=== PATIENT | male | born 1935 | race Caucasian/White ===

== ENCOUNTER 2017-09-28 14:20 | Emergency (ER) | payer MEDICARE, BC ==
--- OUTSIDE RECORDS SUMMARY | 2017-09-28 15:30 | XMS REPORT ---
:1935 External Reference #:[id number] Author Organization [facility] Address [address] [place] [address] Phone [phone] Care Team Providers Name Role Phone Balbir Kruse M.D. 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 Active Onset: 02/06/2015 Primary open-angle glaucoma, moderate Rey Choudhury M.D. Active stage Onset: 01/01/2016 Bilateral primary open angle glaucoma Rey Choudhury M.D. 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 Active Family History Date Family Member(s) Problem(s) Comments Mother Cataract Social History Type Date Description Comments Marital Status Legal Status: Occupation [employer] Developer [employer] Work Status Retired ETOH Use Consumes 1-2 glasses of wine per day Smoking Patient is a former smoker Quit 1970s Recreational Drug Use Denies Drug Use Daily Caffeine Does Not Consume Caffeine Allergies, Adverse Reactions, Alerts Date Description Reaction Status Severity Comments 05/02/2014 NKDA active Medications Medication Date Status Form Strength Qnty SIG Indications Ordering Provider Timolol Maleate 02/06/ Active Solution 0.25% 15ml instill 1 H40.11x2 Rey Long 2014 drop into [place], the right M.D. eye every morning as directed Travatan Z 03/10/ Active Solution 0.004% 15ml instill 1 Catarino 2000 drop into [place], each eye M.D. every night as directed Aspirin / Active Tablets 81mg 1 tab Unknown 0000 every day Vitamin D3 / Active Capsules 1000Unit 1 tab by Unknown 0000 mouth every day Calcium 500 / Active Tablets 500-250-20 1 by mouth Unknown 0000 0mg-mg-Uni every day t Potassium / Active Tablets ER 20Meq Mauser, Chloride Kae 0000 JANE Hilliard MD Eplerenone / Active Tablets 25mg 1/2 daily Mauser, 0000 MD Babak Atorvastatin / Active Tablets 10mg Unknown Calcium 0000 Valsartan / Active Tablets 40mg 1/2 daily Unknown 0000 Vitamin C / Active Capsules 500mg 2 tab by Unknown 0000 mouth every day Doxazosin / Active Tablets 4mg Unknown Mesylate 0000 Vitamin B12 / Active Tablets ER 1000mcg Unknown 0000 Pred Forte 06/26/ Hx Suspension 1% 5ml One drop H40.1131 Rey Long 2017 - three Arleo, 08/22/ times a M.D. 2018 day in the right eye for three days, then discontinu e. Fish Oil 03/10/ Hx Capsules 1000mg 1 by mouth Rey Long 2000 - every day Arleo, 06/25/ M.D. 2017 Multivitamins / Hx Capsules 1 tab by Unknown 0000 - mouth every day 2017 Potassium / Hx Tablets 75mg 1 tab by Unknown 0000 - mouth every day 2017 Vital Signs Date Vital Result Comment 07/14/2017 BP Systolic 142 mmHg BP Diastolic 85 mmHg Heart Rate 76 /min Respiratory Rate 15 /min Results Description No Information Procedures Date CPT Code Description Status 07/14/2017 53273 Trabeculoplasty By Laser Surgery Completed 06/26/2017 17349 Est Patient Comprehensive Exam Completed 12/24/2016 03570 Scanning Computerized Opthalmic Diagnostic Posterior Completed Seg Retina 12/24/2016 29089 Visual Field Exam Extended Completed 12/24/2016 81952 Est Patient Intermediate Exam Completed 07/01/2016 15108 Scanning Computerized Ophthalmic Diagnostic Imag Completed Posterior Seg On 07/01/2016 96718 Est Patient Intermediate Exam Completed 01/01/2016 61249 Visual Field Exam Extended Completed 01/01/2016 45964 Est Patient Comprehensive Exam Completed 06/06/2015 59939 Scanning Computerized Ophthalmic Diagnostic Imag Completed Posterior Seg On 06/06/2015 15405 Gonioscopy Completed 06/06/2015 00869 Est Patient Intermediate Exam Completed 02/23/2015 51951 Visual Field Exam Extended Completed 02/06/2015 87478 Est Patient Comprehensive Exam Completed 02/06/2015 31256 Fundus Photography With Interpretation And Report Completed 05/02/2014 25265 Scanning Computerized Opthalmic Diagnostic Posterior Completed Seg Retina 05/02/2014 71475 Est Patient Comprehensive Exam Completed 05/02/2014 612 Preservision Areds 2 Completed 07/27/2013 80040 Est Patient Comprehensive Exam Completed 02/24/2013 93050 Visual Field Exam Extended Completed 02/24/2013 06131 Est Patient Intermediate Exam Completed 02/01/2013 37975 Gonioscopy Completed 10/30/2012 37257 Fundus Photography With Interpretation And Report Completed 10/30/2012 75057 Est Patient Comprehensive Exam Completed 10/21/2011 00559 Est Patient Intermediate Exam Completed 07/19/2011 13869 Scanning Computerized Opthalmic Diagnostic Posterior Completed Seg Retina 07/19/2011 53110 New Patient Comprehensive Exam Completed 07/19/2011 62282 Pachymetry Completed Encounters Type Date Location Provider CPT E/M Dx Office Visit 02/23/2015 Rey Choudhury MD, Rey Choudhury, [address] H40.11x2 9:15a kojo Singh H35.32 H25.13 Office Visit 10/27/2013 10:20a Rey Choudhury MD, Brianna Mitchell, 48580 365.11 pc O.D. 365.71 Office Visit 02/01/2013 10:10a Rey Choudhury MD, Brianna Mitchell, 62530 365.11 pc O.D. 365.11 365.71 365.71 Plan of Care 09/01/2017 - Rey Choudhury M.D.H40.1131 Primary open-angle glaucoma, bilateral, mild stageComments:Smoking can increase the risk of developing or worsening any eye related disease, as well as affect your overall health. If you are a smoker, we strongly recommend that you quit.If you are not a smoker, we strongly recommend that you do not start. Your glaucoma is stable at this time.Your eye pressure is within an acceptable range, and your testing does not show any further deterioration at this time. Please continue your treatment. Your eyes responded well to the laser treatment. Your eye pressure in both eyes is within the target range without adding additional medication. We will continue to monitor your eye pressure.Follow up:4 Month Follow Up Visual Field, 30-2 DFE/IOP You can expect to have your eyes dilated at your nextvisit. If Dr. Choudhury orders any additional testing, it may require extra time. We recommend that you bring sunglasses, as dilation drops often make you light sensitive until they wear off. We always recommend you bring someone to drive you home if you are uncomfortable driving with your eyes dilated. If you have any questions before your next visit, feel free to call our office at .
--- NOTE | 2017-09-28 15:55 | ED ---
Upper Extremity Pain - HPI Summary HPI Summary: Patient here with left pain, redness, swelling since falling this morning at 6 AM. He reports he was "wrestling with a log in the backyard" when he mechanically tripped and fell. He's not sure if he fell on an outstretched hand or not as it happened so quickly. Denies having pain immediately however as the morning went on, he noticed pain stiffness and swelling here. He took ibuprofen prior to arrival and reports minimal to no relief. Denies numbness or weakness but has intermittent tingling in his fingers. He is still able to move his fingers, wrist, elbow and shoulder however does report some discomfort and pain with extension of his wrist. No known previous injury here. No other injuries or symptoms as a result of fall. - History of Current Complaint Chief Complaint: EDExtremityUpper Stated Complaint: LT HAND INJURY Time Seen by Provider: 09/28/17 14:52 Hx Obtained From: Patient - Allergies/Home Medications Allergies/Adverse Reactions: Allergies Allergy/AdvReac Type Severity Reaction Status Date / Time No Known Allergies Allergy Verified 09/28/17 15:07 Home Medications: Home Medications Aspirin [Nishi Aspirin EC Low Dose 81 MG] 81 mg PO DAILY 09/28/17 [History Confirmed 09/28/17] Calcium Carbonate/Vitamin D3 [Calcium 600 + Vit D Tablet] 1 each PO DAILY [History Confirmed 09/28/17] Cyanocobalamin TAB* [Vitamin B12 TAB*] 500 mcg PO DAILY 09/28/17 [History Confirmed 09/28/17] Doxazosin Mesylate 2 mg PO DAILY 09/28/17 [History Confirmed 09/28/17] Epleronone (NF) [Inspra (NF)] 12.5 mg PO DAILY 09/28/17 [History Confirmed 09/28] Potassium Chlor TAB* [Klor Con ER TAB*] 10 meq PO DAILY 09/28/17 [History Confirmed 09/28/17] Rosuvastatin (NF) [Crestor (NF)] 5 mg PO 1700 09/28/17 [History Confirmed ] Timolol 0.25% OPHTH.SOLN* [Timoptic Ophth.soln 0.25%*] 1 drop RIGHT EYE QAM [History Confirmed 09/28/17] Travoprost Z 0.004% OPHTH (NF) [Travatan Z 0.004% OPTH (NF)] 1 drop BOTH EYES BEDTIME 09/28/17 [History Confirmed 09/28/17] PMH/Surg Hx/FS Hx/Imm Hx Previously Healthy: Yes Endocrine/Hematology History: Reports: Hx Blood Disorders - thrombocytopenia - stable - no recent bleeding/bruising issues Denies: Hx Anticoagulant Therapy, Hx Diabetes, Hx Thyroid Disease Cardiovascular History: Reports: Hx Hypercholesterolemia, Hx Hypertension Denies: Hx Pacemaker/ICD, Hx Peripheral Vascular Disease Musculoskeletal History: Denies: Hx Arthritis, Hx Rheumatoid Arthritis, Hx Osteoporosis, Hx Scoliosis Sensory History: Denies: Hx Cataracts, Hx Contacts or Glasses, Hx Glaucoma, Hx Hearing Aid Opthamlomology History: Denies: Hx Cataracts, Hx Contacts or Glasses, Hx Glaucoma Neurological History: Denies: Hx Headaches, Other Neuro Impairments/Disorders Psychiatric History: Denies: Hx Anxiety, Hx Depression, Hx Panic Disorder - Surgical History Surgery Procedure, Year, and Place: 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 LEFT FOOT 1965. LEFT AND RIGHT SHOULDER. RIGHT FOOT 1939. TONSILS CHILD Infectious Disease History: No Infectious Disease History: Denies: Traveled Outside the [place] in Last 30 Days - Social History Occupation: Retired Alcohol Use: Daily Alcohol Amount: 2 wine/day Hx Substance Use: No Substance Use Type: Reports: None Hx Tobacco Use: Yes - not currently Smoking Status (MU): Former Smoker Review of Systems Constitutional: Negative Negative: Fatigue Eyes: Negative Negative: Photophobia, Blurred Vision ENT: Negative Negative: Epistaxis Cardiovascular: Negative Negative: Chest Pain Respiratory: Negative Negative: Shortness Of Breath Gastrointestinal: Negative Negative: Vomiting, Nausea Positive: no symptoms reported Positive: Arthralgia, Myalgia, Edema Positive: Bruising Positive: Paresthesia. Negative: Headache, Weakness, Numbness, Syncope, Slurred Speech Psychological: Normal All Other Systems Reviewed And Are Negative: Yes Physical Exam Triage Information Reviewed: Yes Vital Signs On Initial Exam: Initial Vitals Temp Pulse Resp BP Pulse Ox 98.2 F 78 16 137/63 100 09/28/17 14:43 09/28/17 14:43 09/28/17 14:43 09/28/17 14:43 09/28/17 14:43 Vital Signs Reviewed: Yes Appearance: Positive: Well-Appearing, No Pain Distress - appears comfortable at rest, Well-Nourished Skin: Positive: Warm, Skin Color Reflects Adequate Perfusion, Dry - mild erythema over Lt basilar region/radial wrist region Head/Face: Positive: Normal Head/Face Inspection Eyes: Positive: EOMI ENT: Positive: Hearing grossly normal Respiratory/Lung Sounds: Positive: Breath Sounds Present Cardiovascular: Positive: Pulses are Symmetrical in both Upper and Lower Extremities Musculoskeletal: Positive: Strength/ROM Intact, Pain @ - erythematous area w/ mild TTP (anatomical snuffbox/basilar region) - no gross deformity Neurological: Positive: Normal, Sensory/Motor Intact - full and equal sensation in fingers, Alert, Oriented to Person Place, Time, CN Intact II-III Psychiatric: Positive: Normal Diagnostics - Vital Signs Vital Signs Temp Pulse Resp BP Pulse Ox 09/28/17 14:43 98.2 F 78 16 137/63 100 - Laboratory Lab Statement: Any lab studies that have been ordered have been reviewed, and results considered in the medical decision making process. 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 In the meantime , RICE and take OTC meds as needed for pain and swelling. - Diagnoses Provider Diagnoses: Left wrist injury Discharge - Sign-Out/Discharge Documenting (check all that apply): Patient Departure - Discharge Plan Condition: Stable Disposition: HOME Patient Education Materials: Osteoarthritis (ED), Wrist Sprain (ED), Scaphoid Fracture (ED) Referrals: Balbir Kruse MD [Primary Care Provider] - Additional Instructions: REST, ICE, ELEVATE AND KEEP SPLINT CLEAN, DRY AND IN PLACE UNTIL SEEN BY ORTHOPEDICS. You may remove occasionally to wash hands and shower but do not use hand fully while this is not in place. Replace after washing. You may take ibuprofen alternating with acetaminophen as needed for pain Call PCP tomorrow to schedule repeat XR in 7-10 days to check for fracture. A fracture was not seen today but sometimes they take time to show up on imaging. Treat injury as a fracture unless told otherwise by PCP after repeat imaging. *If you develop numbness, tingling, weakness, swelling or skin discoloration, remove splint and elevate arm for 20 minutes. If symptoms persist, return to ED - Billing Disposition and Condition Condition: STABLE Disposition: Home
--- NOTE | 2017-09-28 16:17 | RAD ---
INDICATION: LEFT hand pain post fall on outstretched hand. Pain, swelling, redness. COMPARISON: No relevant prior exams available on the [facility] PACS for comparison. TECHNIQUE: AP, lateral, and oblique views LEFT wrist. REPORT: Negative for fracture or dislocation. Bone density appears decreased throughout. Marked degenerative arthropathy at the basal joint of the thumb with osteophytosis, complete joint space loss, subchondral sclerosis and cystic change, and loose bodies. Less marked osteoarthritis at the scaphoid trapezium trapezoid and remaining articulations. Chondrocalcinosis at the radiocarpal joint. Mild nonfocal soft tissue swelling about the wrist. IMPRESSION: #. Negative for fracture. If there is high index of suspicion for an occult scaphoid fracture repeat exam in 7 - 10 days would be suggested. #. 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 #. Nonfocal mild soft tissue swelling.
[2017-09-28 16:39] VITALS: BP 152/75
== END 2017-09-28 16:39 | disposition home or self-care (01) ==
LOC: ED 14:20
DX: S69.92XA Unspecified injury of left wrist, hand and finger(s), initial encounter (principal); W01.0XXA Fall on same level from slipping, tripping and stumbling without subsequent striking against object, initial encounter; Y92.096 Garden or yard of other non-institutional residence as the place of occurrence of the external cause; Z87.891 Personal history of nicotine dependence
CPT/HCPCS: 99282

== ENCOUNTER 2018-07-22 11:23 | Day surgery (SDC) | payer MEDICARE, BC ==
[~2018-07-22 11:23] MED LIST: Acetaminophen TAB* 325 MG PO PRN; Buffered Lidocaine 1% SYRIN* 1 ML/SYRINGE INTRADERM ONE
[2018-07-22] MEDS ORDERED: fentaNYL* 50 MCG/ML 2 ML VIAL (100 MCG VIAL) ONE (11:56)
[2018-07-22] MEDS ORDERED: Midazolam* 1 MG/ML 2 ML VIAL (2 MG) ONE (11:57)
[2018-07-22] MEDS ORDERED: Phenylephrine OPHTH SOL 2.5%* 2 ML ONE (13:46)
[2018-07-22] MEDS ORDERED: Cyclopentolate 1% OPTH.SOL* 2 ML BTL ONE (13:46)
[2018-07-22] MEDS ORDERED: Proparacaine 0.5% OPHTH.SOL* 15 ML BTL ONE (13:46)
[2018-07-22] MEDS ORDERED: Povidone Iodine 5% OPTH* 30 ML BTL ONE (13:46)
[2018-07-22] MEDS ORDERED: Neomycin/Polymy/Dex OPTH.SUSP* MAXITROL 0.1% 5 ML ONE (13:46)
[2018-07-22] MEDS ORDERED: Lidocaine 2% EPI 1:200000 MPF*10-20 ML VIAL ONE (13:46)
[2018-07-22] MEDS ORDERED: Lidocaine 1%* 5 ML VIAL ONE (13:46)
[2018-07-22] MEDS ORDERED: Ketorolac 0.5% OPHTH (NF) 0.5 % 5 ML BTL ONE (13:46)
[2018-07-22] MEDS ORDERED: acetaZOLAMIDE TAB* 250 MG ONE (13:46)
[2018-07-22 16:32] VITALS: BP 134/72
--- NOTE | 2018-07-22 19:51 | OP ---
DATE OF OPERATION: 07/22/18 - [facility] DATE OF : 31 SURGEON: Rey Choudhury M.D. PREOPERATIVE DIAGNOSIS: Cataract and glaucoma, right eye. POSTOPERATIVE DIAGNOSIS: Cataract and glaucoma, right eye. OPERATIVE PROCEDURE: Extracapsular cataract extraction with IOL and iStent, right eye. DESCRIPTION OF PROCEDURE: The patient was brought to the operating room after being given 1/2% Alcaine with epinephrine drops in the preoperative area. The eye was prepped and draped in the usual sterile fashion. Sterile drape and eyelid speculum were placed. Again, topical 1/2% Alcaine with epinephrine was given. A paracentesis incision was made at the 9 o'clock position with the No.75 blade. Clear cornea incision 2.2 x 2.2-mm was created at the 12 o'clock position starting at the anterior limbus using the 2.2-mm keratome. The anterior chamber was irrigated with 0.4 mL of 1% non-preservative intracameral lidocaine and filled with DisCoVisc. A capsulorrhexis was completed using the cystotome and the Utrata forceps. Hydrodissection was performed with balanced salt solution. The lens nucleus was removed with the Phacoemulsification handpiece without incident. Cortex was removed with the irrigation-aspiration handpiece. The capsular bag was re-inflated using DisCoVisc and an [id number] implant was inserted with the shooter followed by an iStent inject inserted at the 2 o'clock and 4 o'clock positions with its shooter. The irrigation- aspiration handpiece was used to remove all residual DisCoVisc. The eye was refilled with balanced salt solution and the wound checked and found to be watertight. Topical Maxitrol drops were given. [id number]/[facility] #: [id number] [facility] CENTERLoretta
== END 2018-07-22 15:10 | disposition home or self-care (01) ==
LOC: OREAST 11:23
PROVIDERS: ATTEND Specialist
DX: H25.11 Age-related nuclear cataract, right eye (principal); H40.1111 Primary open-angle glaucoma, right eye, mild stage; H35.3212 Exudative age-related macular degeneration, right eye, with inactive choroidal neovascularization; H35.3221 Exudative age-related macular degeneration, left eye, with active choroidal neovascularization; I10 Essential (primary) hypertension; E78.00 Pure hypercholesterolemia, unspecified; Z87.891 Personal history of nicotine dependence; I35.0 Nonrheumatic aortic (valve) stenosis; G47.33 Obstructive sleep apnea (adult) (pediatric)
CPT/HCPCS: A9270-GY; C1783; J2250; J3010; V2632

== ENCOUNTER 2018-07-29 06:56 | Day surgery (SDC) | payer MEDICARE, OTHER ==
[2018-07-29] MEDS ORDERED: Midazolam* 1 MG/ML 2 ML VIAL (2 MG) ONE (08:11)
[2018-07-29] MEDS ORDERED: fentaNYL* 50 MCG/ML 2 ML VIAL (100 MCG VIAL) ONE (08:11)
[2018-07-29 09:16] VITALS: BP 153/56
[2018-07-29] MEDS ORDERED: Lidocaine 2% EPI 1:200000 MPF*10-20 ML VIAL ONE (10:11)
[2018-07-29] MEDS ORDERED: Ketorolac 0.5% OPHTH (NF) 0.5 % 5 ML BTL ONE (10:11)
[2018-07-29] MEDS ORDERED: Lidocaine 1%* 5 ML VIAL ONE (10:11)
[2018-07-29] MEDS ORDERED: Povidone Iodine 5% OPTH* 30 ML BTL ONE (10:11)
[2018-07-29] MEDS ORDERED: acetaZOLAMIDE TAB* 250 MG ONE (10:11)
[2018-07-29] MEDS ORDERED: Phenylephrine OPHTH SOL 2.5%* 2 ML ONE (10:11)
[2018-07-29] MEDS ORDERED: Neomycin/Polymy/Dex OPTH.SUSP* MAXITROL 0.1% 5 ML ONE (10:11)
[2018-07-29] MEDS ORDERED: Proparacaine 0.5% OPHTH.SOL* 15 ML BTL ONE (10:11)
[2018-07-29] MEDS ORDERED: Cyclopentolate 1% OPTH.SOL* 2 ML BTL ONE (10:11)
--- NOTE | 2018-07-29 10:49 | OP ---
OPERATIVE NOTE: DATE OF OPERATION: 07/29/18 DATE OF : 31 SURGEON: Rey Choudhury M.D. PREOPERATIVE DIAGNOSIS: Cataract, left eye. POSTOPERATIVE DIAGNOSIS: Cataract, left eye. OPERATIVE PROCEDURE: Extracapsular cataract extraction with intraocular lens implant, left eye. PROCEDURE: The patient was brought to the operating room after being given 1/2% Alcaine with epineph rine drops in the preoperative area. The eye was prepped and draped in the usual sterile fashion. S terile drape and eyelid speculum were placed. Again, topical 1/2% Alcaine with epinephrine was given . A paracentesis incision was made at the 3 o'clock position with the No. 75 blade. Clear cornea in cision 2.2 x 2.2-mm was created at the 6 o'clock position starting at the anterior limbus using the 2 .2-mm keratome. The anterior chamber was irrigated with 0.4 mL of 1% non-preservative intracameral l idocaine and filled with DisCoVisc. A capsulorrhexis was completed using the cystotome and the Utrat a forceps. Hydrodissection was performed with balanced salt solution. The lens nucleus was removed w ith the Phacoemulsification handpiece without incident. Cortex was removed with the irrigation-aspir ation handpiece. The capsular bag was re-inflated using DisCoVisc and an [id number] 20 implant was inser roxanna with the shooter followed by an iStent inject inserted with the shooter at the 8 o'clock and 10 o 'clock position. The irrigation-aspiration handpiece was used to remove all residual DisCoVisc. The eye was refilled with balanced salt solution and the wound checked and found to be watertight. Topi neymar Maxitrol drops were given. [id number]/[facility] #: [id number]
== END 2018-07-29 09:25 | disposition home or self-care (01) ==
LOC: OREAST 06:56
PROVIDERS: ATTEND Specialist
DX: H25.12 Age-related nuclear cataract, left eye (principal); H40.1131 Primary open-angle glaucoma, bilateral, mild stage; Z87.891 Personal history of nicotine dependence; H35.3212 Exudative age-related macular degeneration, right eye, with inactive choroidal neovascularization; H35.3221 Exudative age-related macular degeneration, left eye, with active choroidal neovascularization; G47.33 Obstructive sleep apnea (adult) (pediatric); I10 Essential (primary) hypertension; Z95.2 Presence of prosthetic heart valve; G25.81 Restless legs syndrome
CPT/HCPCS: A9270-GY; C1783; J2250; J3010; V2632

== ENCOUNTER 2023-04-08 05:56 | Inpatient (IN) ==
[2023-04-08 06:37] LABS: Rapid COVID-19 Molecular Undetected (Undetected)
[2023-04-08] MEDS ORDERED: ceFAZolin 2 GM PREMIX 2 GM/50 ML BAG ONE (06:38)
[2023-04-08] MEDS ORDERED: Dexamethasone IV 4 MG/ML VIAL 1 ml VIAL ONE ×2 (06:38→07:12)
[2023-04-08] MEDS ORDERED: Famotidine IV 10 MG/ML 2 ml VIAL (20 mg) ONE (06:39)
[2023-04-08] MEDS: Lactated Ringers 1000 ml BAG 1,000 ML IV SCH ×2 (06:53→12:18)
[2023-04-08] MEDS: Dexamethasone IV 4 MG/ML VIAL 1 ml VIAL IV SLOW PU ONE (06:53)
[2023-04-08] MEDS: Famotidine IV 10 MG/ML 2 ml VIAL (20 mg) IV ONE (06:53)
[2023-04-08] MEDS: Buffered Lidocaine 1% SYRIN 1 ml INTRADERM ONE (06:53)
[2023-04-08] MEDS ORDERED: fentaNYL 100 mcg/2 ml 50 MCG/ML VIAL ONE (07:03)
[2023-04-08] MEDS ORDERED: Midazolam 2 mg/2 ml VIAL 1 mg/ml 2 ml VIAL (2 mg) ONE (07:03)
[2023-04-08] MEDS ORDERED: Ondansetron 4 mg VIAL 2 MG/ML 2 ml VIAL ONE (07:12)
[2023-04-08] MEDS ORDERED: ROPIVACAINE 5 MG/ML 30 ML BTL (0.5%) ONE ×2 (07:12→07:13)
[2023-04-08] MEDS ORDERED: Propofol 10 MG/ML 20 ML BTL ONE (07:12)
[2023-04-08] MEDS ORDERED: Lidocaine 2% PF 5 ML VIAL ONE (07:12)
[2023-04-08] MEDS ORDERED: Rocuronium 50 mg VIAL 10 mg/ml 5 ml VIAL (50 mg) ONE (07:14)
[2023-04-08] MEDS ORDERED: Sevoflurane BOTTLE ONE (07:17)
[2023-04-08] MEDS ORDERED: oxyCODONE/Acetamin 5/325 mg TAB PO PRN (09:44)
[2023-04-08] MEDS ORDERED: HYDROcodone/ACETAMIN 5/325 mg TAB PO PRN (09:44)
[2023-04-08] MEDS ORDERED: fentaNYL 100 mcg/2 ml 50 MCG/ML VIAL IV PRN (09:44)
[2023-04-08] MEDS ORDERED: Naloxone 0.4 mg VIAL 0.4 mg/ml 1 ml VIAL IV PRN (09:44)
[2023-04-08] MEDS ORDERED: Lactulose 30 ml UDC PO PRN (10:05)
[2023-04-08] MEDS ORDERED: Magnesium Hydroxide LIQ 30 ML UDC PO PRN (10:05)
[2023-04-08] MEDS ORDERED: Ondansetron ODT 4 mg TAB 4 MG TAB PO PRN (10:05)
[2023-04-08] MEDS ORDERED: Ondansetron 4 mg VIAL 2 MG/ML 2 ml VIAL IV PRN (10:05)
[2023-04-08] MEDS: Metoclopramide 5 MG/ML VIAL (10 mg) IV SLOW PU ONE (11:33)
[2023-04-08] MEDS: ceFAZolin 1 GM ADVAN 1 GM in NS 0.9% 50 ML 50 ML IVPB SCH (15:44)
[2023-04-08] MEDS: Magnesium Hydroxide LIQ 30 ML UDC PO SCH (23:10)
[2023-04-09 07:08] LABS: Hematocrit 41.3 % (38-53); Hemoglobin 13.7 g/dL (13.2-16.3); Mean Platelet Volume 9.7 fL (7.5-11.2); Platelet Count 117 10^3/uL (150-450)
[2023-04-09 07:45] LABS: Calcium 8.5 mg/dL (8.6-10.3); Creatinine, Serum 0.92 mg/dL (0.67-1.17); Potassium 3.7 mmol/L (3.5-5.0); eGFR CKD-EPI 79.5 (>60)
[2023-04-09] MEDS: Cholecalciferol (VIT D3) 1,000 unit TAB PO SCH (09:48)
[2023-04-09] MEDS: Potassium Chlor 20 meq TAB.ER PO SCH (09:50)
[2023-04-09] MEDS: Vitamin THERAPEUTIC TAB PO SCH (09:50)
[2023-04-10 06:24] LABS: Hemoglobin 14.4 g/dL (13.2-16.3); Mean Platelet Volume 9.1 fL (7.5-11.2); Platelet Count 119 10^3/uL (150-450)
[2023-04-10] MEDS: Iohexol 350 (CONTRAST) 500 ML MDV IV ONE (10:54)
[2023-04-10] MEDS: Latanoprost 0.005% 2.5 ml BTL BOTH EYES SCH (20:21)
[2023-04-11 06:41] LABS: Hematocrit 41.9 % (38-53); Hemoglobin 14.2 g/dL (13.2-16.3); Mean Platelet Volume 9.2 fL (7.5-11.2); Platelet Count 121 10^3/uL (150-450)
[2023-04-11 09:57] LABS: ABS Eosinophils 0.4 10^3/uL (0.0-0.5); ABS Lymphocytes 0.4 10^3/uL (1.0-4.8); ABS Monocytes 0.6 10^3/uL (0.0-1.1); ABS Neutrophils 7.2 10^3/uL (1.5-7.6); Eosinophil % 4.1 %; Hematocrit 44.3 % (38-53); Lymphocyte % 4.3 %; Mean Corpuscular Hemoglobin 30.2 pg (27-33); Mean Corpuscular Hgb Conc 33.8 g/dL (31-36); Mean Corpuscular Volume 89.3 fL (80-97); Platelet Count 133 10^3/uL (150-450); Red Blood Count 4.96 10^6/uL (4.06-5.63); Red Cell Distribution Width 14.1 % (12-17); White Blood Count 8.5 10^3/uL (3.6-10.2)
[2023-04-11 12:45] LABS: Albumin 3.4 g/dL (3.2-5.2); Albumin/Globulin Ratio 1.6 (1-3); Calcium 8.4 mg/dL (8.6-10.3); Creatinine, Serum 0.81 mg/dL (0.67-1.17); Globulin 2.1 g/dL (2-4); Potassium 4.1 mmol/L (3.5-5.0); Total Bilirubin 0.5 mg/dL (0.2-1.0); Total Protein 5.5 g/dL (6.4-8.9); eGFR CKD-EPI 84.3 (>60)
[2023-04-11] MEDS: PEG 3000 GI LAVAGE 1 GALLON PO ONE (12:52)
[2023-04-11] MEDS: Iohexol 350 (CONTRAST) 500 ML MDV IV ONE (17:27)
[2023-04-11 17:47] LABS: Hematocrit 46.7 % (38-53); Hemoglobin 15.7 g/dL (13.2-16.3)
[2023-04-12 07:07] LABS: Hematocrit 42.4 % (38-53); Hemoglobin 14.3 g/dL (13.2-16.3); Mean Platelet Volume 8.7 fL (7.5-11.2); Platelet Count 149 10^3/uL (150-450)
[2023-04-13 05:42] LABS: Hematocrit 40.9 % (38-53); Mean Platelet Volume 8.1 fL (7.5-11.2); Platelet Count 164 10^3/uL (150-450)
[2023-04-14 17:09] LABS: Rapid COVID-19 Molecular Undetected (Undetected)
[2023-04-16 09:56] VITALS: BP 129/74
== END 2023-04-16 13:45 | disposition swing bed (61) | DRG 469 ==
LOC: SSU 05:56 → OR 05:56 → SSU 11:46
PROVIDERS: ADMIT Orthopaedic Surgery; ATTEND Orthopaedic Surgery